=== PATIENT | male | born 1975 | race Caucasian/White ===

== ENCOUNTER 2016-06-04 09:19 | Emergency (ER) | payer SELFPAY ==
[~2016-06-04] VITALS: Ht 157.5 cm; Wt 80.0 kg
[~2016-06-04 09:19] MED LIST: DOCU-144 PO; HYDR-3498 PO; HYDR-906 PO; LYR75 PO; OMEP20CA16 PO; ONDA4TAB35 PO; ONDA4TAB8 PO; OXYC-279 PO; OXYC-283 PO; PRED20TA PO; SULF500T11 PO; TRAM50TA2 PO
[2016-06-04 09:20] VITALS: Ht 157.5 cm; Wt 80.0 kg
== END 2016-06-04 11:10 | disposition left against medical advice (07) ==
LOC: FTE 09:19
DX: Z53.21 Procedure and treatment not carried out due to patient leaving prior to being seen by health care provider (principal)

== ENCOUNTER 2016-06-06 07:34 | Emergency (ER) | payer OTHER ==
[~2016-06-06] VITALS: Wt 72.4 kg
[2016-06-06] MEDS ORDERED: ONDANSETRON (ODT) 4 MG TAB ODT STA (08:02)
[2016-06-06] MEDS ORDERED: HYDR-902 PO (08:04)
[2016-06-06] MEDS ORDERED: ONDA4TAB14 PO (08:04)
[2016-06-06] MEDS ORDERED: HYDROCODONE/APAP (10/325) TAB PO ONE (08:30)
--- NOTE | 2016-06-06 11:11 | ERD ---
ER Documentation Chief Complaint Date/Time DATE: 06/06/16 TIME: 11:09 Chief Complaint abdominal pain with nausea and vomiting for 4 days. hx of uc HPI Patient is a 40-year-old male with asthma and ulcerative colitis who presents with abdominal pain. The patient has abdominal pain for the past 2 days. He had an ileostomy placed in 2014. He has had dysuria for the past day and nausea for the past day as well. He does have a primary doctor but he does not have a pain management doctor. Upon review of old medical records he has multiple visits to the ER with similar complaints. Review of the emergency department information exchange shows visits to 3 separate emergency departments for similar type complaints. ROS All systems reviewed and are negative except as per history of present illness. Medications Home Meds Active Scripts Ondansetron (Ondansetron Odt) 4 Mg Tab.rapdis, 4 MG PO Q6H Y for NAUSEA AND/OR VOMITING, #30 TAB Prov:JAKUB CHEN MD 06/06/16 Hydrocodone/Acetaminophen ([place] 10-325 Tablet) 1 Each Tablet, 1 TAB PO Q6H Y for PAIN, #7 TAB Prov:JAKUB CHEN MD 06/06/16 Oxycodone HCl/Acetaminophen (Percocet 5-325 mg Tablet) 1 Each Tablet, 1 EACH PO pain Y for qhs, #7 TAB Prov:LINDA PEDERSEN PA-C 03/08/16 Ondansetron Hcl* (Zofran*) 4 Mg Tablet, 4 MG PO Q6H for NAUSEA AND/OR VOMITING, #30 TAB Prov:ENZO ROJAS PA-C 03/01/16 Tramadol HCl (Tramadol HCl) 50 Mg Tablet, 50 MG PO Q4 Y for PAIN, #20 TAB Prov:ENZO ROJAS PA-C 03/01/16 Prednisone* (Prednisone*) 20 Mg Tab, 40 MG PO DAILY for 5 Days, TAB Prov:GONSALO CAZARES MD 12/25/15 Sulfasalazine* (Sulfazine*) 500 Mg Tablet, 1000 MG PO BID for 14 Days, TAB Prov:GONSALO CAZARES MD 12/25/15 Tramadol HCl (Tramadol HCl) 50 Mg Tablet, 50 MG PO Q4 Y for PAIN, #20 TAB Prov:GONSALO CAZARES MD 12/25/15 Ondansetron Hcl* (Zofran* ODT) 4 mg -ODT Tab.disper, 4 MG PO Q8 Y for NAUSEA AND /OR VOMITING, #30 TAB Prov:FÁTIMA LICEA NP 11/11/15 Oxycodone Hcl-Acetaminophen* (Percocet*) 7.5-325 Mg Tablet, 1 TAB PO Q4H Y for SEVERE PAIN LEVEL 7-10, #20 TAB Prov:FÁTIMA LICEA NP 11/11/15 Docusate Sodium* (Colace*) 100 Mg Capsule, 100 MG PO TID Y for CONSTIPATION, # 30 CAP Prov:KVNG MERINO NP 10/21/15 Hydrocodone Bit-Acetaminophen ([place]) 5-325 Mg Tablet, 1 TAB PO Q6 Y for PAIN for 2 Days, #10 TAB 0 Refills Prov:ALPA BELTRÁN PA-C 10/07/15 Reported Medications Omeprazole* (Omeprazole*) 20 Mg Capsule.dr, 20 MG PO DAILY, #30 CAP 08/23/15 Hydrocodone Bit-Acetaminophen* ([place]*) 5-325 Mg Tab, 1 TAB PO Q8 Y for PAIN LEVEL 6-10, #10 TAB 07/24/15 Pregabalin* (Lyrica*) 75 Mg Capsule, 75 MG PO BID, CAP 07/22/15 Allergies Allergies: Coded Allergies: No Known Drug Allergies (Verified Allergy, Unknown, 06/06/16) PMhx/Soc History of Surgery: Yes (Illiostomy placement x2) Anesthesia Reaction: No Hx Neurological Disorder: No Hx Respiratory Disorders: Yes (Asthma) Hx Cardiac Disorders: No Hx Psychiatric Problems: No Hx Miscellaneous Medical Probl: Yes (Ulcerative Colitis, crohns) Hx Alcohol Use: No Hx Substance Use: No Hx Tobacco Use: No Smoking Status: Never smoker FmHx Family History: diabetes Physical Exam Vitals Vital Signs Date Time Temp Pulse Resp B/P Pulse Ox O2 Delivery O2 Flow Rate FiO2 06/06/16 07:37 98.2 81 21 133/833 99 Physical Exam Const: Mild distress secondary to pain Head: Atraumatic Eyes: Normal Conjunctiva ENT: Normal External Ears, Nose and Mouth. Neck: Full range of motion..~ No meningismus. Resp: Clear to auscultation bilaterally Cardio: Regular rate and rhythm, no murmurs Abd: Soft, diffuse tenderness to palpation, stoma is pink and is putting out stool, no distention Skin: No petechiae or rashes Back: No midline or flank tenderness Ext: No cyanosis, or edema Neur: Awake and alert Psych: Normal Mood and Affect Results 24 hrs Current Medications Medications (Trade) Dose Ordered Sig/Jerrod Route PRN Reason Start Time Stop Time Status Last Admin Dose Admin Acetaminophen/ Hydrocodone Bitart ([place] (10/325)) 1 tab ONCE ONCE PO 06/06/16 08:30 06/06/16 08:31 DC 06/06/16 08:15 Ondansetron HCl (Zofran Odt) 4 mg ONCE STAT ODT 06/06/16 08:02 06/06/16 08:03 DC 06/06/16 08:14 Procedures/MDM Patient is a 40-year-old male presents with acute on chronic pain. The patient was given [place] and Zofran. At this point I do not believe he requires further workup or admission to the hospital. His vital signs are normal and I doubt infection. I doubt obstruction as his stoma is pink and putting out stool. I believe the risks of doing a CT scan outweigh the benefits as the patient has had multiple CT scans in the past and there is a risk of radiation. The patient will be discharged and can return for any worsening symptoms. He will be given a short course of [place] and Zofran. He could return for any worsening symptoms. He should follow-up with his primary doctor within 24 hours for reevaluation. He can follow-up with pain management for further pain control. Departure Diagnosis: Primary Impression: Abdominal pain Abdominal location: generalized Qualified Code: R10.84 - Generalized abdominal pain Condition: Fair Patient Instructions: Abdominal Pain Referrals: LYDIA MCKEON MD (PCP) [facility] Additional Instructions: FOLLOW UP WITH YOUR PRIMARY CARE PHYSICIAN TOMORROW.Return to this facility if you are not improving as expected. JAKUB CHEN MD Jun 06, 2016 11:11
== END 2016-06-06 09:15 | disposition home or self-care (01) ==
LOC: FTE 07:34
DX: R10.84 Generalized abdominal pain (principal); J45.909 Unspecified asthma, uncomplicated
CPT/HCPCS: Z7502; Z7610; 99284

== ENCOUNTER 2016-10-12 08:55 | Emergency (ER) | payer OTHER ==
[~2016-10-12] VITALS: Ht 162.6 cm; Wt 80.0 kg
[~2016-10-12 08:55] MED LIST changes: +HYDR-902 PO; +ONDA4TAB14 PO; -SULF500T11 PO; +SULF500T5 PO
[2016-10-12 08:59] VITALS: Ht 162.6 cm; Wt 80.0 kg
[2016-10-12] MEDS ORDERED: morphine 4 MG/ML VIAL IV STA (10:54)
--- NOTE | 2016-10-12 11:07 | ERA ---
ER Documentation Chief Complaint Date/Time DATE: 10/12/16 TIME: 11:05 Chief Complaint ap since yesterday HPI Patient is a 41-year-old male with history of Crohn's disease and ileostomy who presents to the ER with 2 days of diffuse abdominal pain and no output from his stoma. He reports nausea and 2 episodes of vomiting. He denies fever. He states that it appears that there is more tissue bulging from his stoma than usual. He had the ileostomy formed 3 years ago. ROS All systems reviewed and are negative except as per history of present illness. Medications Home Meds Active Scripts Dicyclomine Hcl* (Bentyl*) 10 Mg Capsule, 10 MG PO QID, #20 CAP Prov:CELI WAGGONER MD 10/12/16 Polyethylene Glycol* (Miralax*) 17 Gm Powd.pack, 17 GM PO DAILY, #5 Prov:CELI WAGGONER MD 10/12/16 Hydrocodone/Acetaminophen ([place] 10-325 Tablet) 1 Each Tablet, 1 TAB PO Q6H Y for PAIN, #7 TAB Prov:JAKUB CHEN MD 06/06/16 Discontinued Reported Medications Omeprazole* (Omeprazole*) 20 Mg Capsule.dr, 20 MG PO DAILY, #30 CAP 08/23/15 Hydrocodone Bit-Acetaminophen* ([place]*) 5-325 Mg Tab, 1 TAB PO Q8 Y for PAIN LEVEL 6-10, #10 TAB 07/24/15 Pregabalin* (Lyrica*) 75 Mg Capsule, 75 MG PO BID, CAP 07/22/15 Discontinued Scripts Ondansetron (Ondansetron Odt) 4 Mg Tab.rapdis, 4 MG PO Q6H Y for NAUSEA AND/OR VOMITING, #30 TAB Prov:JAKUB CHEN MD 06/06/16 Oxycodone HCl/Acetaminophen (Percocet 5-325 mg Tablet) 1 Each Tablet, 1 EACH PO pain Y for qhs, #7 TAB Prov:LINDA PEDERSEN PA-C 03/08/16 Ondansetron Hcl* (Zofran*) 4 Mg Tablet, 4 MG PO Q6H for NAUSEA AND/OR VOMITING, #30 TAB Prov:ENZO ROJAS PA-C 03/01/16 Tramadol HCl (Tramadol HCl) 50 Mg Tablet, 50 MG PO Q4 Y for PAIN, #20 TAB Prov:ENZO ROJAS PA-C 03/01/16 Prednisone* (Prednisone*) 20 Mg Tab, 40 MG PO DAILY for 5 Days, TAB Prov:GONSALO CAZARES MD 12/25/15 Sulfasalazine* (Sulfazine*) 500 Mg Tablet, 1000 MG PO BID for 14 Days, TAB Prov:GONSALO CAZARES MD 12/25/15 Tramadol HCl (Tramadol HCl) 50 Mg Tablet, 50 MG PO Q4 Y for PAIN, #20 TAB Prov:GONSALO CAZARES MD 12/25/15 Ondansetron Hcl* (Zofran* ODT) 4 mg -ODT Tab.disper, 4 MG PO Q8 Y for NAUSEA AND /OR VOMITING, #30 TAB Prov:FÁTIMA LICEA NP 11/11/15 Oxycodone Hcl-Acetaminophen* (Percocet*) 7.5-325 Mg Tablet, 1 TAB PO Q4H Y for SEVERE PAIN LEVEL 7-10, #20 TAB Prov:FÁTIMA LICEA NP 11/11/15 Docusate Sodium* (Colace*) 100 Mg Capsule, 100 MG PO TID Y for CONSTIPATION, # 30 CAP Prov:KVNG MERINO NP 10/21/15 Hydrocodone Bit-Acetaminophen ([place]) 5-325 Mg Tablet, 1 TAB PO Q6 Y for PAIN for 2 Days, #10 TAB 0 Refills Prov:ALPA BELTRÁN PA-C 10/07/15 Allergies Allergies: Coded Allergies: No Known Drug Allergies (Verified Allergy, Unknown, 10/12/16) PMhx/Soc Past medical history: Crohn's disease Past surgical history: Ileostomy Social history: Denies tobacco or alcohol History of Surgery: Yes (Illiostomy placement x2) Anesthesia Reaction: No Hx Neurological Disorder: No Hx Respiratory Disorders: Yes (Asthma) Hx Cardiac Disorders: No Hx Psychiatric Problems: No Hx Miscellaneous Medical Probl: Yes (Ulcerative Colitis, crohns) Hx Alcohol Use: No Hx Substance Use: No Hx Tobacco Use: No FmHx Family History: No coronary disease, No diabetes Physical Exam Vitals Vital Signs Date Time Temp Pulse Resp B/P Pulse Ox O2 Delivery O2 Flow Rate FiO2 10/12/16 11:29 68 18 108/73 100 Room Air 10/12/16 08:59 98.1 91 18 124/75 98 Physical Exam Const: Alert, appears mildly uncomfortable Head: Atraumatic Eyes: Normal Conjunctiva, no pallor, no icterus ENT: Normal External Ears, Nose and Mouth. Mucous membranes moist Neck: Full range of motion..~ No meningismus. Resp: Clear to auscultation bilaterally, no wheezes, no rales Cardio: Regular rate and rhythm, no murmurs Abd: Soft, nondistended. Low abdominal scars in the midline. Mild left lower quadrant tenderness. No rebound or guarding. Left lower quadrant ostomy shows normal mucosa, no signs of hernia, stool noted to be extruding through the ostomy. Skin: No petechiae or rashes Back: No midline or flank tenderness Ext: No cyanosis, or edema Neur: Awake and alert, cranial nerves II through XII intact bilaterally, strength and sensation full in 4 extremities. Psych: Normal Mood and Affect Result Diagram: 10/12/16 1102 10/12/16 1102 Results 24 hrs Laboratory Tests Test 10/12/16 11:02 White Blood Count 8.410^3/ul Red Blood Count 4.6010^6/ul Hemoglobin 14.7g/dl Hematocrit 44.6% Mean Corpuscular Volume 97.0fl Mean Corpuscular Hemoglobin 32.0pg Mean Corpuscular Hemoglobin Concent 33.0g/dl Red Cell Distribution Width 12.7% Platelet Count 52617^3/UL Mean Platelet Volume 8.7fl Neutrophils % 60.1% Lymphocytes % 26.7% Monocytes % 9.0% Eosinophils % 2.9% Basophils % 0.6% Nucleated Red Blood Cells % 0.0/100WBC Neutrophils # 5.110^3/ul Lymphocytes # 2.310^3/ul Monocytes # 0.810^3/ul Eosinophils # 0.210^3/ul Basophils # 0.110^3/ul Nucleated Red Blood Cells # 0.010^3/ul Prothrombin Time 12.7Sec Prothrombin Time Ratio 1.0 INR International Normalized Ratio 0.95 Urine Color STRAW Urine Clarity CLEAR Urine pH 5.0 Urine Specific [place] 1.006 Urine Ketones NEGATIVEmg/dL Urine Nitrite NEGATIVEmg/dL Urine Bilirubin NEGATIVEmg/dL Urine Urobilinogen NEGATIVEmg/dL Urine Leukocyte Esterase NEGATIVELeu/ul Urine Hemoglobin NEGATIVEmg/dL Urine Glucose NEGATIVEmg/dL Urine Total Protein NEGATIVEmg/dl Sodium Level 140mmol/L Potassium Level 4.0mmol/L Chloride Level 105mmol/L Carbon Dioxide Level 25mmol/L Anion Gap 14 Blood Urea Nitrogen 12mg/dl Creatinine 0.90mg/dl Glucose Level 73mg/dl Calcium Level 9.6mg/dl Total Bilirubin 0.3mg/dl Direct Bilirubin 0.00mg/dl Indirect Bilirubin 0.3mg/dl Aspartate Amino Transf (AST/SGOT) 26IU/L Alanine Aminotransferase (ALT/SGPT) 33IU/L Alkaline Phosphatase 71IU/L Total Protein 7.6g/dl Albumin 4.9g/dl Globulin 2.70g/dl Albumin/Globulin Ratio 1.81 Lipase 68U/L Current Medications Medications (Trade) Dose Ordered Sig/Jerrod Route PRN Reason Start Time Stop Time Status Last Admin Dose Admin Morphine Sulfate (morphine) 4 mg ONCE STAT IV 10/12/16 10:54 10/12/16 10:55 DC 10/12/16 11:18 IV Flush 10 ml 10 ml STK-MED ONCE .ROUTE 10/12/16 12:08 10/12/16 12:09 DC 10/12/16 12:54 Sodium Chloride (NS) 0 ml @ ud STK-MED ONCE .ROUTE 10/12/16 12:08 10/12/16 12:09 DC 10/12/16 12:53 Iohexol 150 ml 150 ml STK-MED ONCE .ROUTE 10/12/16 12:08 10/12/16 12:09 DC 10/12/16 12:54 Sodium Chloride (NS) 250 ml @ ud STK-MED ONCE .ROUTE 10/12/16 12:09 10/12/16 12:10 DC 10/12/16 12:54 Acetaminophen/ Hydrocodone Bitart ([place] (5/325)) 1 tab ONCE ONCE PO 10/12/16 14:00 10/12/16 14:00 DC 10/12/16 13:37 Procedures/MDM MDM: Patient is a 41-year-old male with Crohn's disease and ileostomy in the left lower quadrant who presents to the ER with abdominal pain. He states that he has had pain for several days and no stool output from the ostomy. He also states that the ostomy appears to be bulging more than usual. He denies fever or vomiting. He has normal labs, UA, and CT scan. On my examination, the ostomy appears unremarkable, and there is no evidence of ischemia or hernia. I do observe stool output. Following the CT scan, I reviewed the patient's prior notes, he has had multiple episodes of similar pain in the past with presentation to the ER. Prior CTs have been unremarkable. When I told the patient of his benign findings, he requested a prescription for [place]. He acknowledged that he has a pain management doctor, but states that he has run out of medication and will not be able to see the pain management doctor for several days at least. I have some concern that the patient may be drug- seeking. Given the number of ER visits with no acute findings, at a minimum his pain is a chronic issue. I will give him a prescription for MiraLAX and Bentyl, and gave him a single dose of [place] in the ER, but I do not believe it is appropriate for me to provide him with a prescription for narcotic medication. I have advised him on return precautions and have advised him to follow-up with his PMD, pain specialist, and or GI doctor tomorrow. Departure Diagnosis: Primary Impression: Abdominal pain Qualified Code: R10.32 - Left lower quadrant pain Condition: CELI Francois MD Oct 12, 2016 11:07
[2016-10-12 11:19] LABS: ADD SCAN DIFF NO
[2016-10-12 11:22] LABS: BASOPHIL # 0.1 10^3/ul (0.0-0.1); BASOPHILS % 0.6 % (0.0-2.0); EOSINOPHILS # 0.2 10^3/ul (0.0-0.5); EOSINOPHILS % 2.9 % (0.0-7.0); HEMATOCRIT 44.6 % (42.0-52.0); HEMOGLOBIN 14.7 g/dl (14.0-18.0); LYMPHOCYTES # 2.3 10^3/ul (0.8-2.9); LYMPHOCYTES % 26.7 % (15.0-51.0); MEAN PLATELET VOLUME 8.7 fl (7.4-10.4); MONOCYTE # 0.8 10^3/ul (0.3-0.9); NEUTROPHIL # 5.1 10^3/ul (1.6-7.5); NEUTROPHILS % 60.1 % (39.0-77.0); PLATELET COUNT 359 10^3/UL (140-415); RED CELL DISTRIBUTION WIDTH 12.7 % (11.5-14.5); WHITE BLOOD COUNT 8.4 10^3/ul (4.8-10.8)
[2016-10-12 11:29] VITALS: BP 108/73; PULSE 68; RESP 18
[2016-10-12 11:44] LABS: ADD UMIC NO; UR ASCORBIC ACID NEGATIVE (NEGATIVE); UR BILIRUBIN (Dip) NEGATIVE (NEGATIVE); UR BLOOD (Dip) NEGATIVE (NEGATIVE); UR CLARITY CLEAR (CLEAR); UR COLOR STRAW (YELLOW); UR GLUCOSE (Dip) NEGATIVE (NEGATIVE); UR KETONES (Dip) NEGATIVE (NEGATIVE); UR LEUKOCYTE ESTERASE (Dip) NEGATIVE Leu/ul (NEGATIVE); UR NITRITE (Dip) NEGATIVE (NEGATIVE); UR SPECIFIC GRAVITY (Dip) 1.006 (1.003-1.030); UR TOTAL PROTEIN (Dip) NEGATIVE (NEGATIVE); UR UROBILINOGEN (Dip) NEGATIVE (NEGATIVE)
[2016-10-12 11:45] LABS: ALBUMIN 4.9 g/dl (3.3-4.9); ALBUMIN/GLOBULIN RATIO 1.81; BILIRUBIN,INDIRECT 0.3 mg/dl (0-1.1); BILIRUBIN,TOTAL 0.3 mg/dl (0.2-1.3); CALCIUM 9.6 mg/dl (8.4-10.2); CREATININE 0.9 mg/dl (0.61-1.24); TOTAL PROTEIN 7.6 g/dl (6.1-8.1)
[2016-10-12 11:49] LABS: INR 0.95; PROTIME 12.7 Sec (12.2-14.2)
[2016-10-12] MEDS ORDERED: SOD CHLORIDE 0.9% 0 ML ONE (12:08)
[2016-10-12] MEDS ORDERED: IOHEXOL 300MG/ML 150 ML BTL ONE (12:08)
[2016-10-12] MEDS ORDERED: SOD CHLORIDE 0.9% 250 ML ONE (12:09)
--- NOTE | 2016-10-12 12:56 | RADRPT ---
PROCEDURE: CT Abdomen and pelvis with contrast. CLINICAL INDICATION: Abdominal pain. History of no stool output from ostomy. TECHNIQUE: CT scan of the abdomen and pelvis with contrast was performed on a multidetector high-r [employer] CT scan. The patient was scanned following the uncomplicated intravenous administration o f 100 ml Omnipaque-300. Coronal and sagittal reformatted images were obtained from the axial source images. Standard CT of the abdomen pelvis with contrast protocols were performed. The total exam CTDI equals 10.95 mGy and the total exam DLP equals 669.0 the to mGy-cm. One or more of the following dose reduction techniques were used: - Automated exposure control. - Adjustment of the mA and/or kV according to patient size. Use of iterative reconstruction technique. COMPARISON: CT abdomen pelvis 03/08/2016 FINDINGS: Status post colectomy with left lower quadrant enterostomy that appears unchanged. No change in the borderline enlarged lymph node in the subcutaneous fat along the central aspect of the enterostomy. The rectum and sigmoid colon which ends primarily in the right mid pelvis is unchanged. There is no evidence of bowel obstruction. The stomach is unremarkable. Negative for intra-abdominal free air , free fluid, abscesses or other lymphadenopathy. The kidneys are normal in size without calcified renal calculi or hydronephrosis bilaterally. In th e subcapsular posterior right mid kidney is a 0.5 cm low density too small to characterize but is li arminda a cyst. No other intra renal masses bilaterally. The ureters and urinary bladder are unremark able. There is hepatic fatty infiltration but no focal hepatic lesions. The gallbladder is unremarkable w ithout biliary ductal dilation. Spleen pancreas and adrenal glands are unremarkable. Lung bases are unremarkable. The aorta is unremarkable. There is a small left inguinal fat-contain ing hernia without herniated hour strangulation. The osseous structures are unremarkable. IMPRESSION: 1. No significant change. 2. Status post cholecystectomy with left lower quadrant enterostomy without bowel obstruction. No change in the borderline enlarged subcutaneous nodule the subcutaneous fat along the central aspect of the enterostomy. No other abdominal or pelvic lymphadenopathy. 3. Negative for intra-abdominal free air fluid abscesses or other lymphadenopathy. 4. No evidence of calcified urinary calculi or obstructive uropathy. 5. Hepatic fatty infiltration. RPTAT:AAJJ Nikole Loo, Physician Date Time Electronically viewed and signed by Nikole Loo Physician on 10/12/2016 12:56 /
[2016-10-12] MEDS ORDERED: POLY17PO6 PO (13:33)
[2016-10-12] MEDS ORDERED: DICY10CA60 PO (13:33)
[2016-10-12] MEDS ORDERED: HYDROCODONE/APAP (5/325) TAB PO ONE (14:00)
== END 2016-10-12 13:59 | disposition home or self-care (01) ==
LOC: E/R 08:55
DX: R10.32 Left lower quadrant pain (principal); J45.909 Unspecified asthma, uncomplicated
CPT/HCPCS: 36415; 74177; 80053; 81003; 83690; 85025; 85610; 96374; J2270; J7050; Q9967; Z7502; Z7610

== ENCOUNTER 2018-03-23 06:50 | Emergency (ER) | END 2018-03-23 11:01 | disposition home or self-care (01) ==

== ENCOUNTER 2018-09-07 14:15 | Observation (INO) | payer MEDICARE, OTHER ==
[~2018-09-07] VITALS: Ht 165.1 cm; Wt 75.0 kg
[~2018-09-07 14:15] MED LIST changes: +CIPR500T4 PO; -DOCU-144 PO; +DOXY100T20 PO; +FLUO20CA22 PO; -HYDR-3498 PO; +HYDR-3980 PO; -HYDR-902 PO; -HYDR-906 PO; -LYR75 PO; -OMEP20CA16 PO; -ONDA4TAB14 PO; -ONDA4TAB35 PO; -ONDA4TAB8 PO; +OXYC-209 PO; -OXYC-279 PO; -OXYC-283 PO; +POLY17PO6 PO; -PRED20TA PO; -SULF500T5 PO; +TAMS-14 PO; -TRAM50TA2 PO
[2018-09-07] MEDS ORDERED: ONDANSETRON 4 MG INJ IV STA (15:47)
[2018-09-07] MEDS ORDERED: SOD CHLORIDE 0.9% 500 ML IV STA (15:47)
[2018-09-07] MEDS ORDERED: morphine 4 MG/ML VIAL IV STA (15:47)
[2018-09-07] MEDS ORDERED: HYDROmorphONE 2 MG/ML SYG IV STA ×2 (16:46→18:55)
[2018-09-07] MEDS ORDERED: OXYC-431 PO (16:51)
--- NOTE | 2018-09-07 17:48 | ERD ---
ER Documentation Chief Complaint Chief Complaint AP WITH COLOSTOMY IN PLACE, STATES THE SITE LOOKS ABNORMAL HPI 43-year-old male with a history of ulcerative colitis with right lower ileostomy presenting with complaints of severe abdominal pain in the right lower quadrant. He states the pain radiates around his ileostomy. He has had associated subjective fevers and chills. Associated nausea with nonbloody and nonbilious vomiting. He feels like he has had decreased output from the stoma as well as some blood. Currently there is dark brown fluid in the bag which he states is abnormal, usually the fluid is inspector metal can brown. No alleviating or exacerbating factors. The pain is constant, 10 out of 10, not relieved with his home pain medications. ROS All systems reviewed and are negative except as per history of present illness. Medications Home Meds Reported Medications Oxycodone HCl/Acetaminophen (Oxycodone-Acetaminophen 10-325) 1 Each Tablet, 1 EACH PO TID PRN for NEEDED, TAB 09/07/18 Discontinued Reported Medications Fluoxetine Hcl* (Fluoxetine Hcl*) 20 Mg Capsule, 20 MG PO DAILY, CAP 03/23/18 Oxycodone HCl/Acetaminophen (Percocet 10-325 mg Tablet) 1 Each Tablet, 1 EACH PO Q8 PRN for SEVERE PAIN LEVEL 7-10, TAB 03/23/18 Doxycycline Hyclate* (Doxycycline Hyclate*) 100 Mg Tablet.dr, 100 MG PO BID for 14 Days, #14 TAB 03/23/18 Discontinued Scripts Tamsulosin Hcl* (Flomax*) 0.4 Mg Cap.er.24h, 0.4 MG PO BID, #10 CAP Prov:AJ CASTAÑEDASTROBINS A. DO 03/23/18 Hydrocodone/Acetaminophen ([place] 10-325 Tablet) 1 Each Tablet, 1 TAB PO Q6H PRN for PAIN, #20 TAB Prov:AJ CASTAÑEDASTOLOS A. DO 03/23/18 Ciprofloxacin Hcl* (Ciprofloxacin Hcl*) 500 Mg Tablet, 500 MG PO BID for 7 Days, TAB Prov:AJ CASTAÑEDASTOLOS A. DO 03/23/18 Polyethylene Glycol* (Miralax*) 17 Gm Powd.pack, 17 GM PO DAILY, #5 Prov:CELI WAGGONER MD 10/12/16 Allergies Allergies: Coded Allergies: No Known Drug Allergies (Verified Allergy, Unknown, 09/07/18) PMhx/Soc History of Surgery: Yes (Illiostomy placement x2) Anesthesia Reaction: No Hx Neurological Disorder: No Hx Respiratory Disorders: Yes (Asthma) Hx Cardiac Disorders: No Hx Psychiatric Problems: No Hx Miscellaneous Medical Probl: Yes (Ulcerative Colitis, crohns) Hx Alcohol Use: No Hx Substance Use: No Hx Tobacco Use: No Smoking Status: Never smoker FmHx Family History: No diabetes Physical Exam Vitals Vital Signs Date Temp Pulse Resp B/P (MAP) Pulse Ox O2 O2 Flow FiO2 Time Delivery Rate 09/07/18 98.6 75 18 112/71 100 Room Air 15:40 (85) 09/07/18 97.9 98 18 133/88 100 14:43 (103) Physical Exam Const: Appears to be in significant distress due to pain. No acute distress Head: Atraumatic Eyes: Normal Conjunctiva ENT: Dry mucous membranes. Normal External Ears, Nose and Mouth. Neck: Full range of motion. No meningismus. Resp: Clear to auscultation bilaterally Cardio: Regular rate and rhythm, no murmurs Abd: Multiple surgical scars noted, well-healed. Right lower quadrant stoma with bag in place, draining brownish fluid. No obvious blood seen. Soft, te nder to palpation diffusely, more in the right lower quadrant with guarding but no rebound. Non distended. Normal bowel sounds Skin: No petechiae or rashes Back: No midline or flank tenderness Ext: No cyanosis, or edema Neur: Awake and alert Psych: Normal Mood and Affect Result Diagram: 09/07/18 1707 09/07/18 1707 Results 24 hrs Laboratory Tests Test 09/07/18 16:20 09/07/18 17:07 Urine Color COLORLESS Urine Clarity CLEAR Urine pH 6.0 Urine Specific [place] 1.002 Urine Ketones NEGATIVE mg/dL Urine Nitrite NEGATIVE mg/dL Urine Bilirubin NEGATIVE mg/dL Urine Urobilinogen NEGATIVE mg/dL Urine Leukocyte Esterase NEGATIVE Desirae/ul Urine Microscopic RBC 0 /HPF Urine Microscopic WBC 0 /HPF Urine Hemoglobin 1+ mg/dL Urine Glucose NEGATIVE mg/dL Urine Total Protein NEGATIVE mg/dl White Blood Count 10.6 10^3/ul Red Blood Count 4.61 10^6/ul Hemoglobin 14.9 g/dl Hematocrit 44.6 % Mean Corpuscular Volume 96.7 fl Mean Corpuscular Hemoglobin 32.3 pg Mean Corpuscular Hemoglobin Concent 33.4 g/dl Red Cell Distribution Width 14.1 % Platelet Count 323 10^3/UL Mean Platelet Volume 8.9 fl Immature Granulocytes % 0.300 % Neutrophils % 70.6 % Lymphocytes % 21.9 % Monocytes % 6.2 % Eosinophils % 0.7 % Basophils % 0.3 % Nucleated Red Blood Cells % 0.0 /100WBC Immature Granulocytes # 0.030 10^3/ul Neutrophils # 7.5 10^3/ul Lymphocytes # 2.3 10^3/ul Monocytes # 0.7 10^3/ul Eosinophils # 0.1 10^3/ul Basophils # 0.0 10^3/ul Nucleated Red Blood Cells # 0.0 10^3/ul Sodium Level 142 mmol/L Potassium Level 3.7 mmol/L Chloride Level 112 mmol/L Carbon Dioxide Level 22 mmol/L Anion Gap 8 Blood Urea Nitrogen 11 mg/dl Creatinine 0.68 mg/dl Est Glomerular Filtrat Rate mL/min > 60 mL/min Glucose Level 88 mg/dl Calcium Level 9.2 mg/dl Total Bilirubin 0.7 mg/dl Direct Bilirubin 0.00 mg/dl Indirect Bilirubin 0.7 mg/dl Aspartate Amino Transf (AST/SGOT) 31 IU/L Alanine Aminotransferase (ALT/SGPT) 36 IU/L Alkaline Phosphatase 96 IU/L Total Protein 7.6 g/dl Albumin 4.3 g/dl Globulin 3.30 g/dl Albumin/Globulin Ratio 1.30 Current Medications Medications Dose Sig/Jerrod Start Time Status Last (Trade) Ordered Route PRN Stop Time Admin Dose Reason Admin Sodium 500 ml @ Q1H STAT 09/07/18 DC 09/07/18 Chloride 500 mls/hr IV 15:47 16:17 09/07/18 16:46 Morphine 4 mg ONCE STAT 09/07/18 DC 09/07/18 Sulfate IV 15:47 16:16 (morphine) 09/07/18 15:48 Ondansetron 4 mg ONCE STAT 09/07/18 DC 09/07/18 HCl (Zofran IV 15:47 16:16 Inj) 09/07/18 15:48 1 mg ONCE STAT 09/07/18 DC 09/07/18 Hydromorphone IV 16:46 16:59 HCl 09/07/18 16:47 (Dilaudid) Ondansetron 4 mg BRIDGE ORDER 09/07/18 HCl (Zofran PRN IV 18:00 Inj) NAUSEA/VOMITI 09/08/18 17:59 NG 650 mg ER BRIDGE 09/07/18 Acetaminophen PRN PO 18:00 (Tylenol .MILD PAIN 09/08/18 17:59 Tab) 1-3 OR TEMP Procedures/MDM EMERGENT LABS AND DIAGNOSTIC STUDIES: Lab Results above were reviewed and interpreted by me. CBC: no anemia or evidence of infection CMP: No evidence of clinically significant electrolyte abnormality, acidosis, renal failure, hypoglycemia, liver disease, or biliary obstruction UA: no evidence of infection Radiology Results as interpreted by Radiology below were reviewed by Sloane Petersen. Saturnino wang MD: CT abdomen and pelvis shows chronic changes, no acute abnormalities, no evidence of bowel obstruction Initial Nursing notes reviewed. Previous Medical Records requested via the Electronic Health Record. EMERGENCY DEPARTMENT COURSE / MEDICAL DECISION MAKING: Patient is presenting with severe right lower quadrant pain and change in his ostomy output. He is afebrile and hemodynamically stable. CT was done given my concern for possible acute surgical abdomen. However CT does not show any significant abnormalities. He was given pain medications here without improvement of his symptoms. He required multiple doses of pain medications. At this time, patient's pain is not controlled and he will require admission for observation and possible surgical consult. I will defer this decision to the inpatient team. Accepting Care Team: Current data and ongoing care discussed. Time: Time of admission Primary Provider: Dr. Shashi May Diagnosis: Primary Impression: Intractable abdominal pain Condition: MERCEDES Wallace MD September 07, 2018 17:48
[2018-09-07] MEDS ORDERED: ONDANSETRON 4 MG INJ IV PRN ×2 (18:00→19:00)
[2018-09-07] MEDS ORDERED: ACETAMINOPHEN 325 MG TAB PO PRN (18:00)
--- NOTE | 2018-09-07 18:53 | HP ---
Date/Time of Note Date/Time of Note DATE: 09/07/18 TIME: 18:42 Assessment/Plan VTE Prophylaxis SCD applied (from Nsg): Yes Pharmacological prophylaxis: NA/contraindicated Pharm contraindication: surgical contra Lines/Catheters IV Catheter Type (from Nrsg): Saline Lock Assessment/Plan Assessment/Plan -Intractable abdominal pain, continue Dilaudid as needed for pain and Zofran as needed for nausea. Continue IV fluids. Dr Díaz is asked to see pt in GI consultation. -History of ulcerative colitis, status post colectomy with ileostomy. -History of asthma, continue albuterol as needed Further recommendations based on clinical course. Plan of care discussed with Dr. Danielle. Result Diagram: 09/07/18 1707 09/07/18 1707 Results 24hrs Laboratory Tests Test 09/07/18 16:20 09/07/18 17:07 Urine Color COLORLESS Urine Clarity CLEAR Urine pH 6.0 Urine Specific [place] 1.002 L Urine Ketones NEGATIVE Urine Nitrite NEGATIVE Urine Bilirubin NEGATIVE Urine Urobilinogen NEGATIVE Urine Leukocyte Esterase NEGATIVE Urine Microscopic RBC 0 Urine Microscopic WBC 0 Urine Hemoglobin 1+ H Urine Glucose NEGATIVE Urine Total Protein NEGATIVE White Blood Count 10.6 # Red Blood Count 4.61 L Hemoglobin 14.9 Hematocrit 44.6 Mean Corpuscular Volume 96.7 Mean Corpuscular Hemoglobin 32.3 Mean Corpuscular Hemoglobin Concent 33.4 Red Cell Distribution Width 14.1 Platelet Count 323 Mean Platelet Volume 8.9 Immature Granulocytes % 0.300 Neutrophils % 70.6 Lymphocytes % 21.9 Monocytes % 6.2 Eosinophils % 0.7 Basophils % 0.3 Nucleated Red Blood Cells % 0.0 Immature Granulocytes # 0.030 Neutrophils # 7.5 Lymphocytes # 2.3 Monocytes # 0.7 Eosinophils # 0.1 Basophils # 0.0 Nucleated Red Blood Cells # 0.0 Sodium Level 142 Potassium Level 3.7 Chloride Level 112 H Carbon Dioxide Level 22 Anion Gap 8 Blood Urea Nitrogen 11 Creatinine 0.68 Est Glomerular Filtrat Rate mL/min > 60 Glucose Level 88 Calcium Level 9.2 Total Bilirubin 0.7 Direct Bilirubin 0.00 Indirect Bilirubin 0.7 Aspartate Amino Transf (AST/SGOT) 31 Alanine Aminotransferase (ALT/SGPT) 36 Alkaline Phosphatase 96 Total Protein 7.6 Albumin 4.3 Globulin 3.30 H Albumin/Globulin Ratio 1.30 HPI/ROS Admit Date/Time Admit Date/Time Hx of Present Illness Patient is 43-year-old male with history of ulcerative colitis, status post colectomy with history of intra-abdominal abscess and 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 Patient presented to the emergency room with abdominal pain which got significantly worse last night. Patient complains of chills, episode of nonbloody emesis. Patient also has a history of asthma for which he uses rescue inhaler as needed. Patient denies any shortness of breath, denies any chest pain, dysuria. Patient underwent CT of the abdomen and pelvis which was negative for any mass, lymphadenopathy, or acute inflammatory process. Patient underwent CT of the abdomen be admitted to medical surgical floor for further evaluation and management. ROS 12 point review of system is negative except for what mentioned in HPI PMH/Family/Social Past Medical History per HPI Medical History: other Medications Current Medications Ondansetron HCl (Zofran Inj) 4 mg BRIDGE ORDER PRN IV NAUSEA/VOMITING; Start at 18:00; Stop 09/08/18 at 17:59 Acetaminophen (Tylenol Tab) 650 mg ER BRIDGE PRN PO .MILD PAIN 1-3 OR TEMP; Start 09/07/18 at 18:00; Stop 09/08/18 at 17:59 Coded Allergies: No Known Drug Allergies (Verified Allergy, Unknown, 09/07/18) Past Surgical History Past Surgical Hx: other (Status post colectomy with ileostomy placement in 2013, status post left-sided ileostomy in 2004, status post ileostomy in the right side in 2018) Family History Significant Family History: no pertinent family hx Social History Alcohol Use: none Smoking Status: Current every day smoker (Couple of cigarettes per day) Drug Use: none Exam/Review of Systems Vital Signs Vitals Vital Signs Date Temp Pulse Resp B/P (MAP) Pulse Ox O2 O2 Flow FiO2 Time Delivery Rate 09/07/18 98.6 75 18 112/71 100 Room Air 15:40 (85) Exam Constitutional: alert, oriented Head: normocephalic Neck: supple Respiratory: clear to auscultation Cardiovascular: nl pulses Gastrointestinal: soft, tender, other (Right lower quadrant ileostomy) Musculoskeletal: nl extremities to inspection Extremities: normal pulses Neurological: nl mental status Skin: nl turgor RADCHENKO,ABDULAZIZ September 07, 2018 18:52
[2018-09-07] MEDS ORDERED: ACETAMINOPHEN 650 MG SUPP PR PRN (19:00)
[2018-09-07] MEDS: D5W-0.45 NACL + KCL 20 MEQ 1,000 ML IV SCH ×2 (19:22→21:27)
[2018-09-07 20:23] VITALS: BP 128/70; PULSE 64; RESP 18; Ht 165.1 cm; Wt 75.0 kg
[2018-09-07] MEDS ORDERED: FAMOTIDINE 20 MG INJ IV SCH (21:00)
[2018-09-07] MEDS: HYDROmorphONE 1 MG/ML SYG IV PRN (21:27)
[2018-09-08] MEDS: HYDROmorphONE 1 MG/ML SYG IV PRN ×2 (01:36→05:53)
[2018-09-08 02:10] VITALS: BP 109/65; PULSE 56; RESP 18
[2018-09-08] MEDS: D5W-0.45 NACL + KCL 20 MEQ 1,000 ML IV SCH (07:32)
[2018-09-08 08:11] VITALS: BP 134/78; PULSE 60; RESP 18
--- NOTE | 2018-09-08 10:53 | DS ---
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 Patient presented to the emergency room with a bdominal pain which got significantly worse last night. Patient complains of chills, episode of nonbloody emesis. Patient also has a history of asthma for which he uses rescue inhaler as needed. Patient denies any shortness of breath, denies any chest pain, dysuria. Patient underwent CT of the abdomen and pelvis which was negative for any mass, lymphadenopathy, or acute inflammatory process. Patient underwent CT of the abdomen be admitted to medical surgical floor for further evaluation and management. Hospital Course Patient left AMA due to court hearing -Intractable abdominal pain, continue Dilaudid as needed for pain and Zofran as needed for nausea. Continue IV fluids. Dr Díaz is asked to see pt in GI consultation. -History of ulcerative colitis, status post colectomy with ileostomy. -History of asthma, continue albuterol as needed Plan of care discussed with Dr. Danielle. Home Meds Reported Medications Oxycodone HCl/Acetaminophen (Oxycodone-Acetaminophen 10-325) 1 Each Tablet, 1 EACH PO TID PRN for NEEDED, TAB 09/07/18 Discontinued Reported Medications Fluoxetine Hcl* (Fluoxetine Hcl*) 20 Mg Capsule, 20 MG PO DAILY, CAP 03/23/18 Oxycodone HCl/Acetaminophen (Percocet 10-325 mg Tablet) 1 Each Tablet, 1 EACH PO Q8 PRN for SEVERE PAIN LEVEL 7-10, TAB 03/23/18 Doxycycline Hyclate* (Doxycycline Hyclate*) 100 Mg Tablet., 100 MG PO BID for 14 Days, #14 TAB 03/23/18 Discontinued Scripts Tamsulosin Hcl* (Flomax*) 0.4 Mg Cap.er.24h, 0.4 MG PO BID, #10 CAP Prov:JULIANNA CASTAÑEDA DO 03/23/18 Hydrocodone/Acetaminophen ([place] 10-325 Tablet) 1 Each Tablet, 1 TAB PO Q6H PRN for PAIN, #20 TAB Prov:JULIANNA CASTAÑEDA DO 03/23/18 Ciprofloxacin Hcl* (Ciprofloxacin Hcl*) 500 Mg Tablet, 500 MG PO BID for 7 Days, TAB Prov:JULIANNA CASTAÑEDAJuly DO 03/23/18 Polyethylene Glycol* (Miralax*) 17 Gm Powd.pack, 17 GM PO DAILY, #5 Prov:CELI WAGGONER MD 10/12/16 Primary Care Provider Care Physician No Primary Pending Labs Laboratory Tests Test 09/07/18 16:20 09/07/18 17:07 09/08/18 04:56 Urine Color COLORLESS (YELLOW) Urine Clarity CLEAR (CLEAR) Urine pH 6.0 (5.0-9.0) Urine Specific 1.002 (1.003-1.030) [place] Urine Ketones NEGATIVE mg/dL (NEGATIVE) Urine Nitrite NEGATIVE mg/dL (NEGATIVE) Urine Bilirubin NEGATIVE mg/dL (NEGATIVE) Urine Urobilinogen NEGATIVE mg/dL (NEGATIVE) Urine Leukocyte NEGATIVE Desirae/ul Esterase Urine Microscopic 0 /HPF (0-5) RBC Urine Microscopic 0 /HPF (0-5) WBC Urine Hemoglobin 1+ mg/dL (NEGATIVE) Urine Glucose NEGATIVE mg/dL (NEGATIVE) Urine Total NEGATIVE Protein mg/dl (NEGATIVE) White Blood Count 10.6 10^3/ul (4.8-10.8) Red Blood Count 4.61 10^6/ul (4.70-6.10 ) Hemoglobin 14.9 g/dl (14.0-18.0) Hematocrit 44.6 % (42.0-52.0) Mean Corpuscular 96.7 Volume fl (82.0-101.0) Mean Corpuscular 32.3 Hemoglobin pg (29.0-33.0) Mean Corpuscular 33.4 Hemoglobin Concent g/dl (32.0-37.0) Red Cell 14.1 % (11.5-14.5) Distribution Width Platelet Count 323 10^3/UL (140-415) Mean Platelet 8.9 fl (7.4-10.4) Volume Immature 0.300 Granulocytes % % (0.001-0.429) Neutrophils % 70.6 % (39.0-77.0) Lymphocytes % 21.9 % (15.0-51.0) Monocytes % 6.2 % (0.0-11.0) Eosinophils % 0.7 % (0.0-7.0) Basophils % 0.3 % (0.0-2.0) Nucleated Red Blood 0.0 Cells % /100WBC (0.0-0.0) Immature 0.030 Granulocytes # 10^3/ul (0.0-0.031 ) Neutrophils # 7.5 10^3/ul (1.6-7.5) Lymphocytes # 2.3 10^3/ul (0.8-2.9) Monocytes # 0.7 10^3/ul (0.3-0.9) Eosinophils # 0.1 10^3/ul (0.0-0.5) Basophils # 0.0 10^3/ul (0.0-0.1) Nucleated Red Blood 0.0 Cells # 10^3/ul (0.0-0.0) Sodium Level 142 143 mmol/L (135-144) mmol/L (135-144) Potassium Level 3.7 4.8 mmol/L (3.5-5.1) mmol/L (3.5-5.1) Chloride Level 112 111 mmol/L (97-110) mmol/L (97-110) Carbon Dioxide 22 mmol/L (21-31) 27 mmol/L (21-31) Level Anion Gap 8 (5-13) 5 (5-13) Blood Urea 11 mg/dl (7-20) 12 mg/dl (7-20) Nitrogen Creatinine 0.68 0.91 mg/dl (0.61-1.24) mg/dl (0.61-1.24) Est Glomerular > 60 mL/min (>60) > 60 mL/min (>60) Filtrat Rate mL/min Glucose Level 88 mg/dl (70-220) 105 mg/dl (70-220) Calcium Level 9.2 9.1 mg/dl (8.4-10.2) mg/dl (8.4-10.2) Total Bilirubin 0.7 1.0 mg/dl (0.2-1.3) mg/dl (0.2-1.3) Direct Bilirubin 0.00 0.00 mg/dl (0.00-0.20) mg/dl (0.00-0.20) Indirect Bilirubin 0.7 mg/dl (0-1.1) 1.0 mg/dl (0-1.1) Aspartate Amino 31 IU/L (15-46) 28 IU/L (15-46) Transf (AST/SGOT) Alanine 36 IU/L (13-69) 29 IU/L (13-69) Aminotransferase (A LT/SGPT) Alkaline 96 IU/L (42-121) 71 IU/L (42-121) Phosphatase Total Protein 7.6 g/dl (6.1-8.1) 6.9 g/dl (6.1-8.1) Albumin 4.3 g/dl (3.3-4.9) 3.8 g/dl (3.3-4.9) Globulin 3.30 3.10 g/dl (1.3-3.2) g/dl (1.3-3.2) Albumin/Globulin 1.30 1.22 Ratio ABDULAZIZ DOVE September 08, 2018 10:53
== END 2018-09-08 08:36 | disposition left against medical advice (07) ==
LOC: E/R 14:15 → MS1 17:33
PROVIDERS: ADMIT Internal Medicine; ATTEND Internal Medicine
DX: R10.31 Right lower quadrant pain (principal); Z93.2 Ileostomy status; J45.909 Unspecified asthma, uncomplicated; F17.210 Nicotine dependence, cigarettes, uncomplicated; Z87.19 Personal history of other diseases of the digestive system
CPT/HCPCS: 74176; 80053; 81001; 85025; 96374; 96375; 99285; G0378; J1170; J2270; J2405; J3480; J7040

== ENCOUNTER 2018-10-03 09:32 | Emergency (ER) | payer MEDICARE, MEDICAID ==
[~2018-10-03] VITALS: Ht 165.1 cm; Wt 75.3 kg
[~2018-10-03 09:32] MED LIST changes: -CIPR500T4 PO; -DOXY100T20 PO; -FLUO20CA22 PO; -HYDR-3980 PO; -OXYC-209 PO; +OXYC-431 PO; -POLY17PO6 PO; -TAMS-14 PO
[2018-10-03 09:36] VITALS: BP 130/74; PULSE 88; RESP 19; Ht 165.1 cm; Wt 75.3 kg
[2018-10-03] MEDS ORDERED: SOD CHLORIDE 0.9% 1,000 ML IV STA (09:56)
[2018-10-03] MEDS ORDERED: ONDANSETRON INJ 8 MG in DEXTROSE 5% 50 ML IV STA (09:56)
[2018-10-03] MEDS ORDERED: morphine 4 MG/ML VIAL IV STA (09:56)
[2018-10-03] MEDS ORDERED: HYDROmorphONE 0.5 MG/0.5 ML SYG IV STA (10:44)
[2018-10-03] MEDS ORDERED: TAMS-14 PO (12:24)
[2018-10-03] MEDS ORDERED: IBUP-1542 PO (12:26)
[2018-10-03] MEDS ORDERED: HYDR-4011 PO (12:26)
--- NOTE | 2018-10-03 12:28 | ERD ---
ER Documentation Chief Complaint Chief Complaint U/L/Q abd pain with N/V x 1 day HPI 43-year-old male presents with abdominal and flank pain x1 day. He reports that his pain is located in the upper left quadrant and on the flank on both sides. He reports that he has noticed blood in his urine. He reports a history of colitis in 2013, 2014, 2016 for which he has had a colon ostomy procedure performed. He currently has a ostomy bag in his right upper quadrant of his abdomen. He also reports a history of kidney stone 3 months ago. He repeats that he is concerned that he is suffering from a kidney stone and colitis at this time. He denies any fevers at home. He reports feeling nauseated and throwing up a few times the past 2 days. He has not taken anything to help with the symptoms. ROS All systems reviewed and are negative except as per history of present illness. Medications Home Meds Active Scripts Hydrocodone/Acetaminophen ([place] 5-325 Tablet) 1 Each Tablet, 1 TAB PO Q6H PRN for PAIN, #7 TAB Prov:CARMELITA LOVELACE PA-C 10/03/18 Ibuprofen* (Ibuprofen*) 600 Mg Tablet, 600 MG PO Q6H PRN for PAIN, #30 TAB Prov:CARMELITA LOVELACE PA-C 10/03/18 Tamsulosin Hcl* (Flomax*) 0.4 Mg Cap.er.24h, 0.4 MG PO BID, #30 CAP Prov:CARMELITA LOVELACE PA-C 10/03/18 Reported Medications Oxycodone HCl/Acetaminophen (Oxycodone-Acetaminophen 10-325) 1 Each Tablet, 1 EACH PO TID PRN for NEEDED, TAB 09/07/18 Allergies Allergies: Coded Allergies: No Known Drug Allergies (Verified Allergy, Unknown, 09/07/18) PMhx/Soc History of Surgery: Yes (X3 ABDOMINAL SURGERIES,colitis) Anesthesia Reaction: No Hx Neurological Disorder: No Hx Respiratory Disorders: No Hx Cardiac Disorders: No Hx Psychiatric Problems: No Hx Alcohol Use: No Hx Substance Use: No Hx Tobacco Use: No FmHx Family History: No diabetes Physical Exam Vitals Vital Signs Date Temp Pulse Resp B/P (MAP) Pulse Ox O2 O2 Flow FiO2 Time Delivery Rate 10/03/18 97.9 88 19 130/74 99 09:36 (92) Physical Exam GENERAL: The patient is well-appearing, well-nourished, in no acute distress HEENT: Atraumatic. Conjunctivae are pink. Pupils equal, round, and reactive to light. NECK: C-spine is soft and supple. There is no meningismus. There is no cervical lymphadenopathy. CHEST: Clear to auscultation bilaterally. There are no rales, wheezes or rhonchi. HEART: Regular rate and rhythm. No murmurs, clicks, rubs or gallops. ABDOMEN: Nonspecific abdominal pain throughout. good bowel sounds. Ostomy bag present right upper quadrant. no rebound or guarding. No gross peritonitis. No gross organomegaly or masses. No Burns sign or McBurney point tenderness. BACK: No midline or flank tenderness. EXTREMITIES: Equal pulses bilaterally. There is no peripheral clubbing, cyanosis or edema. No focal swelling or erythema. Full range of motion. Grossly neurovascularly intact. NEUROLOGIC: Alert and oriented. Cranial nerves II through XII intact. SKIN: There is no apparent rash or petechiae. The skin is warm and dry. HEMATOLOGIC AND LYMPHATIC: There is no evidence of excessive bruising or lymphadenopathy. No gross cervical, axillary, or inguinal lymphadenopathy Result Diagram: 10/03/18 1001 10/03/18 1001 Results 24 hrs Laboratory Tests Test 10/03/18 10:01 White Blood Count 7.6 10^3/ul Red Blood Count 4.38 10^6/ul Hemoglobin 14.4 g/dl Hematocrit 42.9 % Mean Corpuscular Volume 97.9 fl Mean Corpuscular Hemoglobin 32.9 pg Mean Corpuscular Hemoglobin Concent 33.6 g/dl Red Cell Distribution Width 13.2 % Platelet Count 337 10^3/UL Mean Platelet Volume 8.8 fl Immature Granulocytes % 0.300 % Neutrophils % 61.5 % Lymphocytes % 31.6 % Monocytes % 5.1 % Eosinophils % 1.0 % Basophils % 0.5 % Nucleated Red Blood Cells % 0.0 /100WBC Immature Granulocytes # 0.020 10^3/ul Neutrophils # 4.7 10^3/ul Lymphocytes # 2.4 10^3/ul Monocytes # 0.4 10^3/ul Eosinophils # 0.1 10^3/ul Basophils # 0.0 10^3/ul Nucleated Red Blood Cells # 0.0 10^3/ul Urine Color YELLOW Urine Clarity CLEAR Urine pH 5.0 Urine Specific [place] 1.017 Urine Ketones NEGATIVE mg/dL Urine Nitrite NEGATIVE mg/dL Urine Bilirubin NEGATIVE mg/dL Urine Urobilinogen NEGATIVE mg/dL Urine Leukocyte Esterase NEGATIVE [place]ae/ul Urine Microscopic RBC 2 /HPF Urine Microscopic WBC 0 /HPF Urine Mucus FEW /HPF Urine Hemoglobin 1+ mg/dL Urine Glucose NEGATIVE mg/dL Urine Total Protein NEGATIVE mg/dl Sodium Level 139 mmol/L Potassium Level 3.7 mmol/L Chloride Level 109 mmol/L Carbon Dioxide Level 21 mmol/L Anion Gap 9 Blood Urea Nitrogen 10 mg/dl Creatinine 0.82 mg/dl Est Glomerular Filtrat Rate mL/min > 60 mL/min Glucose Level 70 mg/dl Calcium Level 9.8 mg/dl Total Bilirubin 0.5 mg/dl Direct Bilirubin 0.00 mg/dl Indirect Bilirubin 0.5 mg/dl Aspartate Amino Transf (AST/SGOT) 27 IU/L Alanine Aminotransferase (ALT/SGPT) 40 IU/L Alkaline Phosphatase 80 IU/L Total Protein 7.2 g/dl Albumin 4.4 g/dl Globulin 2.80 g/dl Albumin/Globulin Ratio 1.57 Current Medications Medications Dose Sig/Jerrod Start Time Status Last (Trade) Ordered Route PRN Stop Time Admin Dose Reason Admin Sodium 1,000 ml @ Q1H STAT 10/03/18 DC 10/03/18 Chloride 1,000 mls/hr IV 09:56 10:06 10/03/18 10:55 Morphine 4 mg ONCE STAT 10/03/18 DC 10/03/18 Sulfate IV 09:56 10:06 (morphine) 10/03/18 09:58 Ondansetron 54 ml @ ONCE STAT 10/03/18 DC 10/03/18 HCl 8 200 mls/hr IV 09:56 10:30 mg/Dextrose 10/03/18 10:12 0.5 mg ONCE STAT 10/03/18 DC 10/03/18 Hydromorphone IV 10:44 10:51 HCl 10/03/18 10:48 (Dilaudid) Procedures/MDM ED COURSE: The patient was stable throughout ED course. I kept the patient informed of laboratory and diagnostic imaging results throughout the ED course. DIAGNOSTIC IMAGING: Read by radiologist. PROCEDURE: CT abdomen and pelvis without contrast. CLINICAL INDICATION: Flank abdominal pain. Hematuria. History of colitis. TECHNIQUE: CT scan of the abdomen and pelvis without contrast was performed on the multislice CT scanner . No intravenous contrast was administered. 3-D sagittal and coronal reformatted images were obtained from the axial source images. DICOM images are available. One or more of the following post reduction techniques were used: - Automated exposure control. - Adjustment of the mA and/or Kv according to patient's size. - Use of iterative reconstruction technique DLP 575.02 mGycm. CTDI vol 9.51 mGy COMPARISON: 09/07/2018 FINDINGS: LUNG BASES: Normal. No visible pulmonary or pleural disease. LIVER: Normal. No abnormal attenuation or morphology. BILIARY: Normal. No visible dilatation or calcification. PANCREAS: Normal. No lesion, fluid collection, ductal dilatation, or atrophy. SPLEEN: Normal. No enlargement or focal lesion. KIDNEYS: There is a 2 mm nonobstructive calculus in the mid left kidney. No other renal or ureteral calculi. No hydronephrosis. No perinephric fat stranding. ADRENALS: Normal. No mass or enlargement. AORTA/VASCULAR: Normal. No aneurysm. RETROPERITONEUM: Normal. No mass or adenopathy. BOWEL/MESENTERY: There are postsurgical changes of colectomy. There is a right lower quadrant ileostomy with a small peristomal hernia containing small bowel. There is also a left lower quadrant abdominal hernia with a partial segment of small bowel, likely related to prior ostomy site. No evidence of bowel obstruction. URINARY BLADDER: The bladder is decompressed and suboptimally evaluated. No stones within the bladder. PELVIC NODES: Mildly prominent sub-centimeter presacral lymph nodes are not significantly changed. PELVIC ORGANS: Normal. No visible mass. Pelvic organs appropriate for patient age. BONES: Normal. No bony lesion or fracture. There is a small unchanged left inguinal hernia containing fat. RPTAT: UU IMPRESSION: 1. There is a 2 mm nonobstructive left renal calculus. No hydronephrosis. 2. Redemonstration of postsurgical changes of colectomy with right lower qu adrant ileostomy and small parastomal hernia containing small bowel. There is also a small left lower quadrant hernia containing small bowel. No evidence of bowel obstruction. 3. Overall no significant change from comparison study. Physician Evelyn Date Time Electronically viewed and signed by Physician Evelyn on 10/03/2018 12:13 MEDICATIONS GIVEN: Saline, morphine, Dilaudid, Zofran Patient tolerated medication well with no adverse reactions. Patient reported improvement in pain. MEDICAL DECISION MAKING: Patient is a 43-year-old male with a history of colitis and surgeries in 2013, 2015, 2016. He currently has an ostomy bag on his right upper abdomen. he also has recently had kidney stone [address] scan was done in order to check for inflamed colitis and kidney stones which was likely due to blood in his urine. The CT scan showed a 2 mm nonobstructive calculus in the mid left kidney and this is what I believe is the cause of his pain. His labs,urinalysis, and other history and physical did not show any signs of infection. Abdomen is soft, NTTP at discharge. H&P and other data not c/w emergent process (eg. appendicitis, intussusception, incarcerated hernia, perforated viscus, peritonitis, torsion). Patient improved throughout the course of the ED with pain management of morphine and Dilaudid. She was instructed to increase fluid intake in order to prevent future kidney stones. Vital signs were reviewed. Patient is afebrile. Patient was not hypoxic. Patient was hemodynamically s table. PRESCRIPTION: Flomax, ibuprofen, [place] DISCHARGE: At this time, patient is stable for discharge and outpatient management. I have instructed the patient to follow-up with his/her primary care physician in 1-2 days. I have discussed with the patient the possibility of needing to see a spec ialist for further workup and imaging studies if symptoms persist. I have instructed the patient to promptly return to the ER for any new or worsening symptoms including increased pain, fever, nausea, vomiting, weakness or LOC. The patient and/or family expressed understanding of and agreement with this plan. All questions were answered. Home care instructions were provided. Disclaimer: Inadvertent spelling and grammatical errors are likely due to EHR/dictation software use and do not reflect on the overall quality of patient care. Also, please note that the electronic time recorded on this note does not necessarily reflect the actual time of the patient encounter. Departure Diagnosis: Primary Impression: Renal calculi Condition: Fair Patient Instructions: Kidney Stone (Urine) Referrals: [facility] YOU HAVE RECEIVED A MEDICAL SCREENING EXAM AND THE RESULTS INDICATE THAT YOU DO NOT HAVE A CONDITION THAT REQUIRES URGENT TREATMENT IN THE EMERGENCY DEPARTMENT. FURTHER EVALUATION AND TREATMENT OF YOUR CONDITION CAN WAIT UNTIL YOU ARE SEEN IN YOUR DOCTORS OFFICE WITHIN THE NEXT 1-2 DAYS. IT IS YOUR RESPONSIBILITY TO MAKE AN APPOINTMENT FOR FOLOW-UP CARE. IF YOU HAVE A PRIMARY DOCTOR --you should call your primary doctor and schedule an appointment IF YOU DO NOT HAVE A PRIMARY DOCTOR YOU CAN CALL OUR PHYSICIAN REFERRAL HOTLINE AT IF YOU CAN NOT AFFORD TO SEE A PHYSICIAN YOU CAN CHOSE FROM THE FOLLOWING [facility] [address] [facility]. [facility] [address] [facility]. [facility] [address] [facility] [facility] [address] [facility] [facility] [address] [facility]. [facility] [address] [facility]. [facility] YOU HAVE RECEIVED A MEDICAL SCREENING EXAM AND THE RESULTS INDICATE THAT YOU DO NOT HAVE A CONDITION THAT REQUIRES URGENT TREATMENT IN THE EMERGENCY DEPARTMENT. FURTHER EVALUATION AND TREATMENT OF YOUR CONDITION CAN WAIT UNTIL YOU ARE SEEN IN YOUR DOCTORS OFFICE WITHIN THE NEXT 1-2 DAYS. IT IS YOUR RESPONSIBILITY TO MAKE AN APPOINTMENT FOR FOLOW-UP CARE. IF YOU HAVE A PRIMARY DOCTOR --you should call your primary doctor and schedule and appointment IF YOU DO NOT HAVE A PRIMARY DOCTOR YOU CAN CALL OUR PHYSICIAN REFERRAL HOTLINE AT . IF YOU CAN NOT AFFORD TO SEE A PHYSICIAN YOU CAN CHOSE FROM THE FOLLOWING [facility] INSTITUTIONS: [facility] [address] [place] [address] [facility] [address] [place] [address] MERGED WITH [facility] [address] [place] [address] Additional Instructions: Call your primary care doctor TOMORROW for an appointment during the next 1-2 days.See the doctor sooner or return here if your condition worsens before your appointment time. CARMELITA LOVELACE PA-C Oct 03, 2018 12:28
== END 2018-10-03 12:34 | disposition home or self-care (01) ==
LOC: FTE 09:32
DX: N20.0 Calculus of kidney (principal)
CPT/HCPCS: 36415; 74176; 80053; 81001; 85025; 96365; 96366; 96375; 99285; J1170; J2270; J2405; J7030